=== PATIENT | male | born 1975 | race Two or more races ===

== ENCOUNTER 2025-03-23 16:25 | Emergency (ER) | payer OTHER ==
[~2025-03-23] VITALS: Ht 180.3 cm; Wt 88.5 kg
[2025-03-23] MEDS ORDERED: NIFEDIPINE 10 MG CAPSULE PO ONE (17:30)
[2025-03-23 17:53] LABS: BASO % 0.7 % (0.1-1.2); EOS # 0.05 (0.04-0.54); EOS % 0.9 % (0.7-7.0); HEMATOCRIT 44.7 % (40.1-51.0); HEMOGLOBIN 15.1 g/dL (13.7-17.5); LYMPH # 2.05 (1.18-3.74); LYMPH % 35.7 % (19.3-53.1); MEAN CORPUSCULAR HEMOGLOBIN 30.4 pg (25.6-32.2); MONO # 0.36 (0.24-0.82); MONO % 6.3 % (4.7-12.5); NEUT # 3.23 (1.56-6.13); NEUT % 56.2 % (34.0-71.1); PLATELET COUNT 242 K/uL (163-369); RED BLOOD COUNT 4.97 M/uL (4.63-6.08); RED CELL DISTRIBUTION WIDTH 12.9 % (11.6-14.4)
[2025-03-23 18:29] LABS: COVID-19 AG NEGATIVE (NEGATIVE)
[2025-03-23 18:34] LABS: INFLUENZA A AG NEGATIVE (NEGATIVE)
[2025-03-23] MEDS ORDERED: COZAAR25 MG PO (20:33)
[2025-03-23] MEDS ORDERED: BUTALBIT-ACETA1 EACH PO (20:33)
== END 2025-03-23 21:10 | disposition home or self-care (01) ==
LOC: ER 16:25
PROVIDERS: General Practice
DX: R51.9 Headache, unspecified (principal); R07.9 Chest pain, unspecified; Z20.822 Contact with and (suspected) exposure to COVID-19